=== PATIENT | female | born 1975 | race Caucasian/White ===

== ENCOUNTER 2017-06-17 09:17 | Emergency (ER) | payer OTHER ==
[~2017-06-17] VITALS: Ht 160 cm; Wt 36.3 kg
[2017-06-17 12:35] VITALS: BP 133/74
== END 2017-06-17 10:30 | disposition home or self-care (01) ==
LOC: FSED 09:17
DX: R42 Dizziness and giddiness (principal); R11.10 Vomiting, unspecified
CPT/HCPCS: 99282